=== PATIENT | male | born 1960 | race Caucasian/White ===

== ENCOUNTER → 2022-08-13 15:19 | Outpatient (BNVA) | payer OTHER, SELFPAY | PROVIDERS: PCP Internal Medicine Medical Oncology; Referring Provider Internal Medicine Medical Oncology; Visit Provider Surgery | DX: Z13.89 Encounter for screening for other disorder (principal) ==

== ENCOUNTER 2022-09-21 05:55 | Day surgery (SDC) | payer OTHER, SELFPAY ==
[2022-09-15 15:23] VITALS: BMI 27.7
[2022-09-21] VITALS (7 sets, daily range): BP systolic 116–130; BP diastolic 70–80; PULSE 63–73; RESP 16–18; TEMP 36.1–37; O2SAT 95–98
[2022-09-21] MEDS: Lactated Ringers 1,000 ML 100 ML IVCONT (06:43)
--- NOTE | 2022-09-21 07:20 | HO.ANESPROP2 ---
[facility] Active Problems Active Problems: All Active Problems (Updated 09/15/22 @ 15:22 by Syl Sun RN) Reducible left inguinal hernia (Acute) Past Medical History Medical History Left inguinal hernia Family History Family History Mother Breast cancer, Onset Age: 85 Surgical History Surgical History Surgical history unknown History of Problems with Anesthesia: No Social History Social History Alcohol intake: current Alcohol intake frequency: does not drink Patient Tobacco Use Status: Never used Tobacco Second Hand Smoke Exposure: No Use of substances other than those prescribed or required for medical reasons: No Are you DNR?: No Advance Directives: No Advance Directives Information Provided: Yes Advance Directives on File: No Meds Allergies Allergy/AdvReac Type Severity Reaction Status Date / Time No Known Allergies Allergy Verified 08/13/22 15:33 Active Medications: Current Medications Lactated Ringer's (Lr) 1,000 mls @ 50 mls/hr IVCONT .Q20H ANTONELLA Lactated Ringer's (Lr) 1,000 mls @ 100 mls/hr IVCONT .Q10H ANTONELLA Last Admin: 09/21/22 06:43 Dose: 100 mls/hr Home Medications Medication Instructions Recorded Confirmed Last Taken Type No Known Home Meds 08/13/22 09/15/22 Unknown History Exam Exam Date and Time: September 21, 2022 0720 Height,Weight and Vital Signs: Height 5 ft 11 in Weight 90.265 kg Last Vital Signs Temp 97.1 F 09/21/22 06:42 Pulse 68 09/21/22 06:42 Resp 16 09/21/22 06:42 BP 124/80 09/21/22 06:42 Pulse Ox 98 09/21/22 06:42 O2 Del Method Room Air 09/21/22 06:42 Airway Mallampati Class: II TM Dist: >3cm Neck ROM: Full Heart: RRR Lungs: CTA Assessment and Plan Assessment Anesthesia Assessment: Anesthesia Plan Discussed and Chart Reviewed Final Anesthetic Review History of Problems with Anesthesia: No NPO: Yes ASA Class: I Final Preanesthetic Review: Meds/Allgs Chart Reviewed, Consent Obtained/Reviewed and Anes Risks/Benef Reviewed Patient Risk: Low Procedure Risk: Low Anesthetic Plan Anesthetic Plan: GA Disposition: Standard PACU
--- NOTE | 2022-09-21 07:35 | MHC.SHP ---
Pre-Procedural Eval Section A Date of Service: 09/21/22 The patient is an INPATIENT: No Changes since office visit: Yes Patient answered all questions; No Cold of Flu in the past 2 weeks, No New Medical Problems and No Changes in Medication The History & Physical has been completed within 30 days and I have reviewed it.: Yes Section B Chief Complaint: Unilateral inguinal hernia, without obstruction or Allergies: Allergies Allergy/AdvReac Type Severity Reaction Status Date / Time No Known Allergies Allergy Verified 08/13/22 15:33 Plan Diagnosis/Plan: Unchanged I have reviewed the history and physical and performed a pertinent physical examination on my patient. No changes have occurred unless specified. Time Spent With Patient Time: Total time managing care of this patient today ____ minutes.
--- NOTE | 2022-09-21 08:32 | P.OP_ITS ---
Operative Note Operative Note Date of Service: 09/21/22 Narrative: Preoperative diagnosis: Left inguinal hernia Postoperative diagnosis: same Procedure: repair of left inguinal hernias Surgeon: Alec Singh MD Manager Field Services: Julianna Rose PA-C Anesthesia: general LMA Indications for procedure: 62-year-old male patient presenting with a palpable mass in the left groin which increases with lifting and straining and reduces with light pressure. On examination patient is found to have a palpable left inguinal hernia which increases with Valsalva and reduces with light pressure while in the supine position. Operative findings: Large indirect left inguinal hernia repair with a large extended PHS mesh Specimen: hernia sac, lipoma of the cord left side Estimated blood loss: 2 mL Complications: none Procedure details: patient was brought to the OR placed in a supine position. After administering general anesthesia the patient's abdomen was prepped with ChloraPrep and draped in a sterile fashion. A surgical time-out was called the consent confirmed. Patient received preoperative antibiotics and Venodyne boots were in place. Local anesthesia consisting of 0.5% Sensorcaine with epinephrine was infiltrated over the left inguinal ligament. Incision was then made with a scalpel carried out through subcutaneous tissue past Ta's fashion up to the external oblique aponeurosis. External oblique aponeurosis was then incised the scalp in wide with the Metzenbaum scissors. The spermatic cord was then dissected free from the surrounding inguinal canal and retracted using a Kev drain. The floor of the inguinal canals found to be we can but no definite hernia was identified. Fibers of the cremaster muscle were then and a large hernia sac identified. A large lipoma of the cord was also identified. The lipoma the cord was dissected free from the surrounding subcutaneous tissue ligated at its base and excised. This was sent to pathology for further examination. The hernia sac was also dissected down to the internal ring. The sac was opened and the contents reduced. The sac was then ligated at its base using a 0 Polysorb suture and excised. Fibers of the internal oblique aponeurosis and transversalis aponeurosis were then incised in the floor of the inguinal canal. A preperitoneal space was then created in widened with an open Ray-Leeann sponge. A large extended PHS mesh was then obtained. The circular underlay was deployed into the preperitoneal space. The overlay was then secured to the pubic tubercle, shelving edge of the inguinal ligament and conjoined tendon using interrupted 0 Polysorb sutures. A slit was made in the mesh in the mesh wrapped around the spermatic cord at the internal ring. This was then secured to the shelving edge using the 0 Polysorb suture. The remaining of the mesh was placed below the external oblique aponeurosis laterally. The ring of the internal ring was secured off to allow the passage of the tip of the index finger. Wounds were then irrigated with saline solution and suctioned dry. No bleeding could be identified. External oblique aponeurosis was then closed using a running 2 0 Polysorb suture. 4 mL of Zenrelef was infiltrated below the external oblique aponeur osis. Ta's fascia and dermis were then reapproximated using interrupted 3-0 Polysorb sutures. Skin was closed using a running subcuticular 4-0 Polysorb suture. Steri-Strips, 2 x 2 gauze and Tegaderm were then applied. The patient tolerated the procedure well. Sponge, instrument, and needle counts were reported as correct. The patient was transferred to PACU in stable condition.
[2022-09-21] MEDS: Acetaminophen 325 MG TABLET 650 MG PO (09:19)
== END 2022-09-21 10:41 | disposition home or self-care (01) ==
PROVIDERS: PCP Internal Medicine Medical Oncology; Visit Provider Surgery
PROC: (CPT 49505; principal; 2022-09-21 07:30)
DX: K40.90 Unilateral inguinal hernia, without obstruction or gangrene, not specified as recurrent (principal); D17.6 Benign lipomatous neoplasm of spermatic cord
CPT/HCPCS: 49505; 55520; 88302; 88304; C1781; C9088; J0690; J1100; J1885; J2250; J2405; J3010

== ENCOUNTER → 2022-09-29 09:07 | Outpatient (BNVA) | payer OTHER, SELFPAY | PROVIDERS: PCP Internal Medicine Medical Oncology; Visit Provider Surgery | DX: Z13.89 Encounter for screening for other disorder (principal) ==

== ENCOUNTER → 2022-10-27 14:39 | Outpatient (BNVA) | payer OTHER, SELFPAY | PROVIDERS: PCP Internal Medicine Medical Oncology; Visit Provider Surgery ==

== ENCOUNTER 2025-02-24 09:07 | Outpatient (REF) | payer OTHER, SELFPAY ==
--- OUTSIDE RECORDS SUMMARY | 2024-08-02 11:30 | XMS_ITS ---
Author Organization Yusef Mark III, MD Address [address] [place] [address] [address] [facility] [id number] Care Team Providers Care Signal Maintenance Technician Name Role Phone Yusef Mark Primary Care Provider [phone] Allergies Allergen (clinical drug ingredient) Drug/Non Drug Allergy documented on EMR Reaction Allergy Type Onset Date Status No Known Drug Allergy Unknown Drug Allergy Active REASON FOR VISIT Annual Exam Social History Tobacco Use: Social History Observation Description Date Details (start date - stop date) Never Smoker NA - NA Sex Assigned At : Social History Observation Description Sex Assigned At Male Tobacco Use/Smoking Question Answer Notes Patient is a nonsmoker Additional Findings: Tobacco Non-User Aggressive non-smoker Encounters Encounter Location Date Provider Diagnosis Yusef Mark III, MD [address] [place] [address] [address] [facility] [place] [id number] 08/02/2024 Yusef Mark Plan Of Treatment Next Appt Details Provider Name:Yusef Mark, 03/05/2025 03:15:00 PM, [address] [place] [address] [place], [id number], Provider Name:Yusef Mark, 02/20/2026 02:00:00 PM, [address] [place] [address] [place], [id number], Progress Notes * Jose FUCHS:1960 (64 yo M)Acc No.[id number]:08/02/2024 Progress Notes Patient: Melvin GLASS Provider: Alise Mark MD :1960 A ge:63 Y S ex:Male Date:08/02/2024 Address:[address] [place] [id number] Subjective: * Chief Complaints: * 1 . Annual Exam. * HPI: C OVID-19 Screening: Questions H ave you had any new onset fever, chills, cough, congestion, sore throat, shortness of breath, muscle aches? N o F all Risk Screening: Fall History H ave you had any falls with injury in the past year? N o H ave you had two or more falls in the past year? N o F all Risk Assessment: * ROS: G eneral/Constitutional: pain o nly normal aches and pains. C hills d enies.?Fatigue a dmits. F ever d enies. E NT: Decreased hearing d enies. R espiratory: Cough d enies. C ardiovascular: Chest pain with exertion d enies. D yspnea on exertion?denies. S hortness of breath d enies. G astrointestinal: Constipation d enies. D ecreased appetite d enies.?Diarrhea d enies. H eartburn d enies. N ausea d enies. R ectal bleeding?denies. V omiting d enies. H ematology: bruising d enies. p etechiae d enies. S wollen glands n one have been noted. G enitourinary: Frequent urination d enies. M usculoskeletal: Muscle aches d enies. P ainful joints d enies. S ciatica d enies. W eakness d enies. S kin: Itching d enies. R magy d enies. S kin lesion(s)?denies. N eurologic: Difficulty speaking d enies. D izziness d enies.?Headache d enies. L ow back pain d enies. P sychiatric: Depressed mood d enies. * Medical History: K idney stones age 40, Overweight, colonic polyp 2011 right side serrated tubular adenoma, Dr. Rogers, Bilateral partial hearing loss. * Surgical History: L eft inguinal herrniorrhaphy [facility] 09/2022. * Hospitalization/Major Diagno stic Procedure: D enies Past Hospitalization. * Family History: F ather: alive 83 yrs, hypertension. M other: alive 75 yrs, hypertension. 1 brother(s) , 2 sister(s) - healthy. . He has no children. There is no family history of cancer. 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 He has a girlfriend Mine for 10 years. * Medications: N one * Allergies: N o Known Drug Allergy. Objective: * Vitals: * Examination: G eneral Examination: GENERAL APPEARANCE: p leasant, well nourished, well developed, in no acute distress, calm and relaxed. HEAD: a traumatic, normocephalic. EYES: e sue, perrla, anicteric, conjugate. EARS: n ormal. NOSE: s eptum intact. ORAL CAVITY: n ormal, unremarkable. NECK/THYROID: n o jugular venous distention, no carotid bruit, thyroid normal. LYMPH NODES: n o enlarged lymph nodes,spleen normal. SKIN: n o suspicious lesions, anicteric. HEART: n o clicks, gallops, murmurs, or rubs, regular rhythm, S1, S2 normal, no s3, or vascular bruits. LUNGS: c lear to auscultation . BREASTS: no masses palpable bilaterally. ABDOMEN: b owel sounds normal, no ascites, no organomegaly, no mass. RECTAL EXAM: n ot examined. MUSCULOSKELETAL: e xtremities unremarkable, no clubbing, cyanosis or edema. PERIPHERAL PULSES: n ormal. NEUROLOGIC: a lert and oriented, cranial nerves 2-12 grossly intact, deep tendon reflexes 2+ symmetrical, motor strength normal upper and lower extremities, sensory exam intact. PSYCH: a lert, oriented. Assessment: Plan: * Treatment: * Images: * The named appointment provid er may or may not be the originator of this progress note, and it is not deemed complete until electronically signed by the appointment provider. Sign off status: Pending * Provider: Alise Mark MD Date: 0 08/02/2024 Generated for Alisei sean/Steve/eTransmitting on: 0 02/24/2025 09:10 AM EDT History and Physical Notes * HPI (History of Present Illness) Category Sub-Category Detail Notes Fall Risk Screening Fall History Have you had any falls with injury in the past year?: No Have you had two or more falls in the year?: No Fall Risk Assessment:: COVID-19 Screening Questions Have you had any new onset fever, chills, cough, congestion, sore throat, shortness of breath, muscle aches?: No Examination Category Sub-Category Detail Notes General Examination GENERAL APPEARANCE: pleasant , well nourished, well developed, in no acute distress, calm and relaxed HEAD: atraumatic, normocep halic EYES: eomi, perrla, anicte purnima, conjugate EARS: normal NOSE: septum intact NECK/THYROID: no jugular venous di stention, no carotid bruit, thyroid normal HEART: no clicks, gallops, murmurs, or rubs, regular rhythm, S1, S2 normal, no s3, or vascular bruits LUNGS: clear to auscultatio n ABDOMEN: bowel sounds normal, no ascites, no organomegaly, no mass NEUROLOGIC: alert and oriented, cranial nerves 2-12 grossly intact, deep tendon reflexes 2+ symmetrical, motor strength normal upper and lower extremities, sensory exam intact SKIN: no suspicious lesion s, anicteric PERIPHERAL PULSES: normal BREASTS: no masses palpable b ilaterally MUSCULOSKELETAL: extremities unremark able, no clubbing, cyanosis or edema LYMPH NODES: no enlarged lymph no desi,spleen normal RECTAL EXAM: not examined PSYCH: alert, oriented ORAL CAVITY: normal, unremarkable
--- OUTSIDE RECORDS SUMMARY | 2025-02-19 09:00 | XMS_ITS ---
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) Referral Organization Yusef Mark III, MD Referring Provider First Name Yusef Referring Provider Last Name Deedee Referring Provider Speciality Internal edicine Referred Provider JAYLEEN JOHN Referred Provider Specialty Dermatology Referral Priority Routine Reason Evaluate and Treat Screen for Colon Cancer Diagnosis 1 Screen for colon can cer (Z12.11) Referral Organization Yusef Mark III, MD Referring Provider First Name Yusef Referring Provider Last Name Deedee Referring Provider Speciality Internal edicine Referred Provider ANN-MARIE MARINELLI Referred Provider Specialty Gastroentero logy Referral Priority Routine Reason Evaluate and Treat Bilateral Hearing Loss Diagnosis 1 Hearing loss (H91.90 ) Referral Organization Yusef Mark III, MD Referring Provider First Name Yusef Referring Provider Last Name Deedee Referring Provider Speciality Internal edicine Referred Provider [facility], Speech and Hearing Referred Provider Specialty Audiologists Referral Priority Routine REASON FOR VISIT Annual Exam Social History Tobacco Use: Social History Observation Description Date Details (start date - stop date) Never Smoker NA - NA Sex Assigned At : Social History Observation Description Sex Assigned At Male Tobacco Use/Smoking Question Answer Notes Patient is a nonsmoker Additional Findings: Tobacco Non-User Aggressive non-smoker Problems Problem Type SNOMED Code ICD Code Onset Dates Problem Status W/U Status Risk Notes Problem 67359412 Skin lesion (L98.9) Active confirmed He was referred to dermatology for definitive diagnosis and treatment of the red-brown skin lesion below his right eyelid Vital Signs Temperature 97.3 degrees Fahrenheit 02/20/20 25 Blood pressure systolic 135 mm Hg 02/20/20 25 Blood pressure diastolic 73 mm Hg 025 Heart Rate 69 /min 02/19/2025 Height 71 in 02/19/2025 Weight 189 lbs 02/19/2025 BMI 26.36 kg/m2 02/19/2025 Encounters Encounter Location Date Provider Diagnosis Yusef Mark III, MD [address] [place] [address] [place] [address] 02/19/2025 Yusef Mark Overweight E66.3 ; Skin lesion L98.9 ; Vitamin D deficiency E55.9 and Hearing loss H91.90 Assessments Encounter Date Diagnosis (ICD Code) Assessment Notes Treatment Notes Treatment Clinical Notes 02/19/2025 Overweight (ICD-10 - E66.3) He has lost 16 pounds since his last visit. We discussed diet and nutrition. His nutritional status seems to be good. I encouraged him to continue losing weight until his body mass index is in the normal range. 02/19/2025 Skin lesion (ICD-10 - L98.9) He was referred to dermatology for definitive diagnosis and treatment of the red-brown skin lesion below his right eyelid 02/19/2025 Vitamin D deficiency (ICD-10 - E55.9) He will take a vitamin D supplement. 02/19/2025 Hearing loss (ICD-10 - H91.90) There has been no change. He was referred to audiology. Plan Of Treatment Pending Test Test Name Order Date PROFILE, FASTING (COMPREHENSIVE METABOLI C) 02/19/2025 CBC w DIFF 02/19/2025 Lipid Panel 02/19/2025 Referrals Referral Date Details 02/19/2025 02/19/2025, Evaluate and treat Neoplasm of right cheek, JAYLEEN JOHN 02/19/2025 02/19/2025, Evaluate and Treat Screen for Colon Cancer, ANN-MARIE MARINELLI 02/19/2025 02/19/2025, Evaluate and Treat Bilateral Hearing Loss, Speech and Hearing [facility] Next Appt Details Follow Up: 2 Weeks, Reason: Telehealth Provider Name:Yusef Mark, 03/05/2025 03:15:00 PM, [address] [place] [address] [address], [place], [address], Provider Name:Yusef Mark, 02/20/2026 02:00:00 PM, [address] [place] [address] [address], [place], [address], Progress Notes * Shailesh FUCHSOB:1960 (64 yo M)Acc No.[id number]:02/19/2025 Progress Notes Patient: Melvin GLASS Provider: Alise Mark MD :1960 A ge:64 Y S ex:Male Date:02/19/2025 Address:[address] [place], [place] [id number] Subjective: * Chief Complaints: * A nnual Exam * HPI: D epression Screening: He returns to the office at the age of 64 for an annual physical examination. Comprehensive blood work was not available. It has been ordered to be done in the next week. He refused to allow me to order a PSA saying that he thought it was generally inaccurate. He is to colonoscopy and was referred for the same. He has a skin lesion next to his nose below his right eyelid which has been present for a couple of months. It was flat farhana scaling. The appearance was equivocal and he was referred to dermatology for definitive diagnosis. He denies any chest pain or shortness of breathHis hearing is unchanged.He has voluntarily lost 16 pounds through diet and exercise since his last visit. PHQ-9 L ittle interest or pleasure in doing things?Not at all F eeling down, depressed, or hopeless N ot at all T rouble falling or staying asleep, or sleeping too much N ot at all F eeling tired or having little energy N ot at all P oor appetite or overeating N ot at all F eeling bad about yourself or that you are a failure, or have let yourself or your family down N ot at all T rouble concentrating on things, such as reading the newspaper or watching television N ot at all M oving or speaking so slowly that other people could have noticed; or the opposite, being so fidgety or restless that you have been moving around a lot more than usual N ot at all T houghts that you would be better off or of hurting yourself in some way N ot at all T otal Score 0 C OVID-19 Screening: no medicare, lesion face below right eye, declines psa. Questions H ave you had any new onset fever, chills, cough, congestion, sore throat, shortness of breath, muscle aches? N o F all Risk Screening: Fall History H ave you had any falls with injury in the past year? N o H ave you had two or more falls in the past year? N o F all Risk Assessment: N o falls in the past year S MYRA Questions: SDOH Questions I n the past year have you been worried about losing your housing? N o I n the past year have you or any family members you live with been unable to get any of the following when it was really needed? Check all that apply: N one * ROS: G eneral/Constitutional: pain o nly normal aches and pains. C hills d enies.?Fatigue a dmits. F ever d enies. E NT: Decreased hearing i n both ears. R espiratory: Cough d enies. C ardiovascular: Chest pain with exertion d enies. D yspnea on exertion?denies. S hortness of breath d enies. G astrointestinal: Constipation o ccasional. D ecreased appetite d enies. D iarrhea d enies. H eartburn d enies. N ausea d enies. R ectal bleeding d enies. V omiting d enies. H ematology: bruising d enies. p etechiae d enies. S wollen glands n one have been noted. G enitourinary: Frequent urination o nce a night. M usculoskeletal: Muscle aches d enies. P ainful joints d enies. S ciatica d enies. W eakness d enies. S kin: Itching d enies. R magy d enies. S kin lesion(s)?denies. N eurologic: Difficulty speaking d enies. D izziness d enies.?Headache d enies. L ow back pain d enies. P sychiatric: Depressed mood d enies. * Medical History: * Surgical History: L eft inguinal herrniorrhaphy [facility] 09/2022 * Hospitalization/Major Diagno stic Procedure: D enies Past Hospitalization * Family History: F ather: alive 83 yrs, hypertension. M other: alive 75 yrs, hypertension. 1 brother(s) , 2 sister(s) - healthy. . He has no children. There is no family history of cancer. 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 He has a girlfriend Mine for 10 years. * Medications: N one * Allergies: N o Known Drug Allergyno[Allergies Verified] Objective: * Vitals: H t: 71, Wt:189, BMI:26.36, BP:135/73, HR:69, Temp:97.3, Wt-k.73. * Examination: G eneral Examination: GENERAL APPEARANCE: p leasant, well nourished, well developed, in no acute distress, calm and relaxed: overweight: man. HEAD: a traumatic, normocephalic. EYES: e sue, perrla, anicteric, conjugate. EARS: : Normal anatomy with bilateral hearing loss. NOSE: s eptum intact. ORAL CAVITY: n ormal, unremarkable. NECK/THYROID: n o jugular venous distention, no carotid bruit, thyroid normal. LYMPH NODES: n o enlarged lymph nodes,spleen normal. SKIN: 1 cm round red scaly flat lesion below right eyelid.? HEART: n o clicks, gallops, murmurs, or rubs, regular rhythm, S1, S2 normal, no s3, or vascular bruits. LUNGS: c lear to auscultation . BREASTS: no masses palpable bilaterally. ABDOMEN: b owel sounds normal, no ascites, no organomegaly, no mass: overweight. RECTAL EXAM: E xam and pending colonoscopy. MUSCULOSKELETAL: e xtremities unremarkable, no clubbing, cyanosis or edema. PERIPHERAL PULSES: n ormal. NEUROLOGIC: a lert and oriented, cranial nerves 2-12 grossly intact, deep tendon reflexes 2+ symmetrical, motor strength normal upper and lower extremities, sensory exam intact. PSYCH: a lert, oriented. Assessment: * Assessment: 1. S kin lesion - L98.9 (Primary) N otes :He was referred to dermatology for definitive diagnosis and treatment of the red-brown skin lesion below his right eyelid 2 . O verweight - E66.3 N otes :He has lost 16 pounds since his last visit. We discussed diet and nutrition. His nutritional status seems to be good. I encouraged him to continue losing weight until his body mass index is in the normal range. 3 . V itamin D deficiency - E55.9 N otes :He will take a vitamin D supplement. 4 . H earing loss - H91.90 N otes :There has been no change. He was referred to audiology. Plan: * Treatment: 2. V itamin D deficiency L AB: PROFILE, FASTING (COMPREHENSIVE METABOLIC) L AB: CBC w DIFF L AB: Lipid Panel 3. H earing loss Referral To:Speech and Hearing [facility] Audiologists Reason:Evaluate and Treat Bilateral Hearing Loss 4. O thers Referral To:JAYLEEN JOHN Dermatology Reason:Evaluate and treat Neoplasm of right cheek Referral To:ANN-MARIE MARINELLI Gastroenterology Reason:Evaluate and Treat Screen for Colon Cancer * Procedure Codes: * Preventive Medicine: Counseling: C are goal follow-up plan: Counseling for abnormal BMI given Y es Above Normal BMI Follow-up D ietary management education, guidance, and counseling * Follow Up: 2 Weeks (Reason: Telehealth) * Images: * Sign off status: Completed true * Provider: Alise Mark MD Date: 0 02/19/2025 Generated for Octavio estrada/Steve/Quianaitting on: 02/24/2025 09:10 AM EDT History and Physical Notes * HPI (History of Present Illness) Category Sub-Category Detail Notes Depression Screening PHQ-9 Little inte rest or pleasure in doing things: Not at all Feeling down, depressed, or hopeless: No t at all Trouble falling or staying asleep, or sl eeping too much: Not at all Feeling tired or having little energy: N ot at all Poor appetite or overeating: Not at all Feeling bad about yourself o r that you are a failure, or have let yourself or your family down: Not at all Trouble concentrating on thi ngs, such as reading the newspaper or watching television: Not at all Moving or speaking so slowly that other people could have noticed; or the opposite, being so fidgety or restless that you have been moving around a lot more than usual: Not at all Thoughts that you would be b laron off or of hurting yourself in some way: Not at all Total Score: 0 Fall Risk Screening Fall History Have you had any falls with injury in the past year?: No Have you had two or more falls in the year?: No Fall Risk Assessment:: No falls in the year COVID-19 Screening Questions Have you had any new onset fever, chills, cough, congestion, sore throat, shortness of breath, muscle aches?: No SDOH Questions SDOH Questions In the past year have you been worried about losing your housing?: No In the past year have you or any family members you live with been unable to get any of the following when it was really needed? Check all that apply:: None Examination Category Sub-Category Detail Notes General Examination GENERAL APPEARANCE: pleasant , well nourished, well developed, in no acute distress, calm and relaxed: overweight: man HEAD: atraumatic, normocep halic EYES: eomi, perrla, anicte purnima, conjugate EARS: : Normal anatomy wit h bilateral hearing loss NOSE: septum intact NECK/THYROID: no jugular venous di stention, no carotid bruit, thyroid normal HEART: no clicks, gallops, murmurs, or rubs, regular rhythm, S1, S2 normal, no s3, or vascular bruits LUNGS: clear to auscultatio n ABDOMEN: bowel sounds normal, no ascites, no organomegaly, no mass: overweight NEUROLOGIC: alert and oriented, cranial nerves 2-12 grossly intact, deep tendon reflexes 2+ symmetrical, motor strength normal upper and lower extremities, sensory exam intact SKIN: 1 cm round red scaly flat lesion below right eyelid PERIPHERAL PULSES: normal BREASTS: no masses palpable b ilaterally MUSCULOSKELETAL: extremities unremark able, no clubbing, cyanosis or edema LYMPH NODES: no enlarged lymph no desi,spleen normal RECTAL EXAM: Exam and pending col onoscopy PSYCH: alert, oriented ORAL CAVITY: normal, unremarkable Consultation Request Notes Referral Date Referring Provider Referred Provider Not es 02/19/2025 Yusef Mark PETER Evaluate and t reat Neoplasm of right cheek 02/19/2025 Yusef Mark BARRY Evaluate and Treat Screen for Colon Cancer 02/19/2025 Yusef Mark [facility], Speech and Hearing Evaluate and Treat Bilateral Hearing Loss
--- OUTSIDE RECORDS SUMMARY | 2025-02-24 09:10 | XMS_ITS | Patient Health Record ---
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) Referral Organization Yusef Mark III, MD Referring Provider First Name Yusef Referring Provider Last Name Deedee Referring Provider Speciality Internal M edicine Referred Provider JAYLEEN JOHN Referred Provider Specialty Dermatology Referral Priority Routine Reason Evaluate and Treat Screen for Colon Cancer Diagnosis 1 Screen for colon can cer (Z12.11) Referral Organization Yusef Mark III, MD Referring Provider First Name Yusef Referring Provider Last Name Deedee Referring Provider Speciality Internal M edicine Referred Provider ANN-MARIE MARINELLI Referred Provider Specialty Gastroentero logy Referral Priority Routine Reason Evaluate and Treat Bilateral Hearing Loss Diagnosis 1 Hearing loss (H91.90 ) Referral Organization Yusef Mark III, MD Referring Provider First Name Yusef Referring Provider Last Name Deedee Referring Provider Speciality Internal edicine Referred Provider [facility] er, Speech and Hearing Referred Provider Specialty Audiologists Referral Priority Routine Immunizations Vaccine Route Administration Date Status Comme nts Decline: Influenza Unknown 07/26/2023 Others Social History Tobacco Use: Social History Observation Description Date Details (start date - stop date) Never Smoker NA - NA Sex Assigned At : Social History Observation Description Sex Assigned At Male Tobacco Use/Smoking Question Answer Notes Patient is a nonsmoker Additional Findings: Tobacco Non-User Aggressive non-smoker Alcohol Screen Question Answer Notes Did you have a drink containing alcohol in the p ast year? No Points 0 Interpretation Negative Problems Problem Type SNOMED Code ICD Code Onset Dates Problem Status W/U Status Risk Notes Problem Overweight (419249597) Overweight (E66.3) Active confirmed He has lost 16 pounds since his last visit. We discussed diet and nutrition. His nutritional status seems to be good. I encouraged him to continue losing weight until his body mass index is in the normal range. 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 I recommended a colonoscopy every 5 years. Problem Calculus of kidney (03281198) Calculus of kidney (N20.0) Active confirmed He denies any recent episodes of renal colic. He has had no hematuria. This problem has been stable. Problem Hearing loss (91082828) Hearing loss (H91.90) Active confirmed There has been no change. He was referred to audiology. Problem Vitamin D deficiency (71436059) Vitamin D deficiency (E55.9) Active confirmed He will take a vitamin D supplement. Vital Signs Heart Rate 69 /min 02/19/2025 Temperature 97.3 degrees Fahrenheit 02/19/2025 Blood pressure diastolic 73 mm Hg 02/19/2025 Height 71 in 02/19/2025 Blood pressure systolic 135 mm Hg 02/19/2025 Weight 189 lbs 02/19/2025 BMI 26.36 kg/m2 02/19/2025 Encounters Encounter Location Date Provider Diagnosis Yusef Mark III, MD [address] [place] [address] [address] [place], [place] [address] 02/19/2025 Yusef Mark Overweight E66.3 ; Skin [...] Treatment Pending Test Test Name Order Date GUAIAC, SINGLE SPECIMEN 02/07/2020 URINE DIP STICK 02/07/2020 PROFILE, FASTING (COMPREHENSIVE METABOLI C) 01/28/2018 PROFILE, FASTING (COMPREHENSIVE METABOLI C) 03/10/2021 PROFILE, FASTING (COMPREHENSIVE METABOLI C) 02/19/2025 PROFILE, FASTING (COMPREHENSIVE METABOLI C) 12/05/2014 PROFILE, FASTING (COMPREHENSIVE METABOLI C) 07/26/2023 PROFILE, FASTING (COMPREHENSIVE METABOLI C) 01/01/2017 PROFILE, FASTING (COMPREHENSIVE METABOLI C) 02/07/2020 PROFILE, FASTING (COMPREHENSIVE METABOLI C) 02/01/2019 PROFILE, FASTING (COMPREHENSIVE METABOLI C) 07/20/2022 PROFILE, FASTING (COMPREHENSIVE METABOLI C) 12/10/2015 LIPID PANEL 12/10/2015 LIPID PANEL 01/28/2018 LIPID PANEL 03/10/2021 LIPID PANEL 12/05/2014 LIPID PANEL 01/01/2017 LIPID PANEL 02/07/2020 LIPID PANEL 02/01/2019 CBC w DIFF 12/10/2015 CBC w DIFF 02/19/2025 CBC w DIFF 01/28/2018 CBC w DIFF 03/10/2021 CBC w DIFF 07/26/2023 CBC w DIFF 12/05/2014 CBC w DIFF 01/01/2017 CBC w DIFF 07/20/2022 CBC w DIFF 02/07/2020 CBC w DIFF 02/01/2019 Lipid Panel 07/20/2022 Lipid Panel 02/19/2025 Lipid Panel 07/26/2023 Vitamin D 25-OH Total 07/20/2022 Vitamin D 25-OH Total 07/26/2023 Next Appt Details Provider Name:Yusef Mark, 03/05/2025 03:15:00 PM, [address] [place] [address] [address], [place], [address], Provider Name:Yusef Mark, 02/20/2026 02:00:00 PM, [address] [place] [address] [address], [place], [address], Insurance Providers Payer Name Payer Address Payer Phone Subscriber Number Group Number Insured Name Patient Relationship to Insured Coverage Start Date Coverage End Date [employer] [address] [place] [phone] [id number] Melvin Fuchs Self - patient is the insured Medical (General) History Medical History History ICD Code kidney stones age 40 overweight colonic polyp 2011 right side serrated t ubular adenoma, Dr. Rogers bilateral partial hearing loss Surgical History Surgery Date(Month/Year) Left inguinal herrniorrhaphy [facility] 09/2022
--- OUTSIDE RECORDS SUMMARY | 2025-02-24 09:10 | XMS_ITS | Clinical Summary ---
Author Organization [facility] Address [address] [place], [place] [id number] Phone Care Team Providers Care Adjunct Trainer Name Role Phone Pcp, Unknown Primary Care Provider Unavailabl e Social History Tobacco Use Types Packs/Day Years Used Date Smoking Tobacco: Never Assessed Education Answer Date Recorded Are you interested in more education? Not on christiane e 11/18/2023 Are you concerned about learning? Not on file 11/18/2023 No 11/18/2023 No 11/18/2023 Digital Access Answer Date Recorded No 11/18/2023 No 11/18/2023 Reliable internet access at home? Not on file 11/18/2023 Device with a working camera? Not on file Sex and Gender Information Value Date Recorded Sex Assigned at Not on file Legal Sex Male 3:46 PM EDT Gender Identity Not on file Sexual Orientation Not on file Plan of Treatment Not on file Medical Devices Not on file Insurance [facility] (Home) [address], [place] [facility] Care Teams Adjunct Trainer Relationship Specialty Start Date End Date Pcp, Unknown PCP - General 11/18/23 Additional Source Comments The information contained in this document represents components of the legal health record. It is not the complete legal health record.[facility]
[2025-02-24 09:19] LABS: MANUAL DIFF FLAG NO
[2025-02-24 09:55] LABS: Hematocrit 45.2 % (42.0-52.0); Hemoglobin 16.0 g/dl (14.0-18.0); Imm Gran Abs Auto 0.01 X10*3/uL (0.00-0.03); Imm Gran Pct Auto 0.2 % (0.0-0.4); Lymphocytes Absolute Auto 1.4 X10*3/uL (1.2-4.9); Mean Corpuscular HGB Conc 35.4 g/dl (31.0-36.0); Mean Corpuscular Hemoglobin 31.4 pg (27.0-33.0); Mean Corpuscular Volume 88.8 fL (80.0-98.0); NRBC Abs Auto 0.000 X10*3/uL (0.0-0.012); NRBC Pct Auto 0.0 /100WBC (0.0-0.2); Platelet Count 142 X10*3/uL (160-400); Red Blood Count 5.09 X10*6/uL (4.60-5.80); White Blood Count 5.1 X10*3/uL (4.8-10.8)
[2025-02-24 10:28] LABS: Alanine Aminotransferase 29 U/L (0-40); Albumin Level 4.5 g/dL (3.5-5.0); Alkaline Phosphatase 54 U/L (39-117); Anion Gap 11 (12-20); Aspartate Amino Transferase 25 U/L (5-37); Blood Urea Nitrogen 19 mg/dL (9-16); Calcium 9.1 mg/dL (8.4-10.2); Carbon Dioxide 27 mmol/L (22-29); Chloride 106 mmol/L (96-108); Cholesterol 178 mg/dL (<200); Estimated Glomerular Filt Rate > 60; HDL Cholesterol 53 mg/dL (>40); Potassium 4.4 mmol/L (3.3-5.1); Sodium 140 mmol/L (135-145); Total Protein 7.0 g/dL (6.5-8.0); Triglycerides 84 mg/dL (<150)
== END 2025-02-24 09:08 | disposition home or self-care (01) ==
LOC: HO.LAB 09:07
PROVIDERS: PCP Internal Medicine Medical Oncology; Visit Provider Internal Medicine Medical Oncology
DX: Z00.00 Encounter for general adult medical examination without abnormal findings (principal); E55.9 Vitamin D deficiency, unspecified; E66.3 Overweight
CPT/HCPCS: 36415; 80053; 80061; 85025